=== PATIENT | male | born 1990 | race Caucasian/White ===

== ENCOUNTER 2021-09-27 07:41 | Emergency (ER) | payer SELFPAY ==
[~2021-09-27] VITALS: Ht 172.7 cm; Wt 79.4 kg
[2021-09-27 07:51] VITALS: BP 163/84
[2021-09-27] MEDS ORDERED: CAPS42.513 TP (07:56)
[2021-09-27] MEDS ORDERED: ONDA4TAB11 PO (07:56)
[2021-09-27] MEDS ORDERED: ONDANSETRON 4 MG TAB.RAPDIS ONE (07:56)
[2021-09-27] MEDS ORDERED: ONDANSETRON 4 MG TAB.RAPDIS SL ONE (08:00)
== END 2021-09-27 08:09 | disposition home or self-care (01) ==
LOC: ER 07:41
DX: R11.2 Nausea with vomiting, unspecified (principal); F12.90 Cannabis use, unspecified, uncomplicated
CPT/HCPCS: 99283; Q0162